=== PATIENT | male | born 1975 | race African-American/Black ===

== ENCOUNTER 2016-09-12 05:41 | Emergency (ER) | payer OTHER ==
[2016-09-12] MEDS ORDERED: METOCLOPRAMIDE INJ 10MG/2ML VIAL (J2765) As Ordered ONE (06:44)
[2016-09-12 07:27] LABS: ALBUMIN 4.1 GM/DL (3.2-5.2); ALBUMIN/GLOBULIN RATIO 1.17 (1.00-1.93); ALKALINE PHOSPHATASE 134 U/L (45-117); ALT/SGPT 35 U/L (12-78); AMYLASE 39 U/L (25-115); ANION GAP 6 MEQ/L (8-16); AST/SGOT 20 U/L (15-37); BILIRUBIN,DIRECT 0.3 MG/DL (0.0-0.2); BILIRUBIN,TOTAL 1.8 MG/DL (0.2-1.0); BLOOD UREA NITROGEN 12 MG/DL (7-18); CALCIUM LEVEL 8.9 MG/DL (8.5-10.1); CARBON DIOXIDE LEVEL 30 MEQ/L (21-32); CHLORIDE LEVEL 106 MEQ/L (98-107); CREATININE FOR GFR 1.07 MG/DL (0.70-1.30); GLOMERULAR FILTRATION RATE > 60.0 (>60); GLUCOSE, FASTING 93 MG/DL (70-105); SODIUM LEVEL 142 MEQ/L (136-145); TOTAL PROTEIN 7.6 GM/DL (6.4-8.2)
[2016-09-12 07:38] LABS: BASO % 0.1 % (0.0-1.0); EOS # 0.1 K/mm3 (0.0-0.50); EOS % 0.6 % (0.0-3.0); LARGE UNSTAINED CELL # 0.1 K/mm3 (0.0-0.4); LARGE UNSTAINED CELL % 0.6 % (0.0-4.0); LYMPH # 0.4 K/mm3 (1.5-4.5); LYMPH % 3.7 % (24.0-44.0); MEAN CORPUSCULAR HEMOGLOBIN 31.3 pg (27.0-33.0); MEAN CORPUSCULAR HGB CONC 33.7 g/dl (32.0-36.5); MEAN CORPUSCULAR VOLUME 92.9 fl (80.0-96.0); MONO # 0.5 K/mm3 (0.0-0.8); MONO % 4.4 % (0.0-5.0); NEUTROPHILS # 10.3 K/mm3 (1.8-7.7); NEUTROPHILS % 90.5 % (36.0-66.0); PLATELET COUNT, AUTOMATED 202 k/mm3 (150-450); RED CELL DISTRIBUTION WIDTH 12.2 % (11.5-14.5); WHITE BLOOD COUNT 11.4 K/mm3 (4.0-10.0)
--- NOTE | 2016-09-12 09:12 | EDDOCDS ---
Physician Documentation [facility] Name: Tomás Ludwig Age: 41 yrs Sex: Male : 1975 Arrival Date: 09/12/2016 Time: 05:41 Bed 12 Private MD: Disposition: 09/12/16 08:50 Discharged to Home/Self Care. Impression: Infectious gastroenteritis and colitis, unspecified. - Condition is Stable. - Discharge Instructions: Clear Liquid Diet, Viral Gastroenteritis, Enof-ya-Dyvo, Clear Liquid Diet, Aqcv-[id number]. - Prescriptions for ZOFRAN ODT 4 mg - dissolve 1 tablet by ORAL route 4 times per day As needed do not chew, do not swallow whole; 10 tablet. - Medication Reconciliation, Local Pharmacy Hours form. - Follow up: Carmella Childers [facility]; When: 1 - 2 days. - Problem is new. - Symptoms are resolved. - Notes: Mild elevation bilirubin requires outpatient follow-up Historical: - Allergies: No known drug Allergies; - Home Meds: 1. none - PMHx: Asthma; - PSHx: Vasectomy; - Social history: Smoking status: Patient uses tobacco products, light tobacco smoker. No barriers to communication noted, The patient speaks fluent Spanish, Speaks appropriately for age. - Family history: Not pertinent. - : The pt / caregiver states he / she is not on anticoagulants. Home medication list is obtained from the patient. - Exposure Risk Screening:: None identified. Vital Signs: 09/12 05:48 BP 123 / 88; Pulse 88; Resp 18; Temp 97.0(O); Pulse Ox 97% on R/A; Weight 63.5 kg / nn1 139.99 lbs; Height 5 ft. 4 in. (162.56 cm); Pain 2/10; 09:09 BP 122 / 78; Pulse 78; Resp 16; Temp 98.1(O); Pulse Ox 98% on R/A; Pain 0/10; ml6 05:48 Body Mass Index 24.03 (63.50 kg, 162.56 cm) nn1 MDM: 06:00 IV Saline Lock ordered. cs11 06:00 NS 0.9% 1000 ml IV at bolus once ordered. cs11 06:00 Metoclopramide 10 mg IV at 40 mg/hr once over 15 mins ordered. cs11 06:01 CBC with Diff Ordered. EDMS 06:01 MED Profile Ordered. EDMS 06:01 Liver Profile Ordered. EDMS 06:01 Amylase Ordered. EDMS 06:01 Lipase Ordered. EDMS 06:14 Financial registration complete. pm4 06:19 [facility] Payment Agreement was scanned into [employer] and attached to record. pm4 07:40 CBC with Diff Reviewed. sd1 07:40 MED Profile Reviewed. sd1 07:40 Liver Profile Reviewed. sd1 07:40 Amylase Reviewed. sd1 07:40 Lipase Reviewed. sd1 07:41 Fluid Challenge ordered. sd1 Administered Medications: 06:52 Drug: NS 0.9% 1000 ml [sodium chloride 0.9 % intravenous solution] Route: IV; Rate: nn1 bolus; Site: right hand; 06:52 Drug: Metoclopramide 10 mg [metoclopramide 5 mg/mL injection solution] Route: IV; Rate: nn1 40 mg/hr; Infused Over: 15 mins; Site: right hand; Signatures: Dispatcher [employer] EDBerenice Schroeder MD MD sd1 Abisai Lovell, RN RN ml6 Oswaldo Nuñez DO DO cs11 Roselyn Garza RN RN nn1 Edu Hayes, Reg Reg pm4 The chart was reviewed and I authenticate all verbal orders and agree with the evaluation and treatment provided.Attachments: 06:19 [facility] Payment Agreement pm4 MTDD
--- NOTE | 2016-09-12 09:12 | EDDOCDS ---
Nurse's Notes [facility] Name: Tomás Ludwig Age: 41 yrs Sex: Male : 1975 Arrival Date: 09/12/2016 Time: 05:41 Bed 12 Private MD: Diagnosis: Infectious gastroenteritis and colitis, unspecified Presentation: 09/12 05:45 Presenting complaint: Patient states: he woke up at 0300 and began having vomiting and nn1 diarrhea. Patient reports no symptoms yesterday. Patient reports 2 episodes of vomiting and constant diarrhea. Adult Sepsis Screening: The patient does not have new or worsening altered mentation. Patient's respiratory rate is less than 22. Systolic blood pressure is greater than 100. Patient has a qSOFA score of 0- Negative Sepsis Screen. Suicide/Homicide risk assessment- the patient denies having any suicidal and/or homicidal ideations and does not present with any other emotional, behavioral or mental health complaints. Status: The patient is an active duty passenger service manager. Transition of care: patient was not received from another setting of care. 05:45 Acuity: ELIEL Level 3 nn1 05:45 Method Of Arrival: Walkin/Carried/Asstd nn1 Triage Assessment: 05:49 General: Appears in no apparent distress, comfortable, Behavior is appropriate for age, nn1 cooperative. Pain: Location: abdomen Pain currently is 2 out of 10 on a pain scale. Pain began 3 hours ago. The patient is triaged at the bedside. See Assessment in Nurses Notes section of ED record. Neurological: No deficits noted. GI: Reports diarrhea, nausea, vomiting. Derm: Skin is normal. 05:55 Pt Declines HIV testing. nn1 Historical: - Allergies: No known drug Allergies; - Home Meds: 1. none - PMHx: Asthma; - PSHx: Vasectomy; - Social history: Smoking status: Patient uses tobacco products, light tobacco smoker. No barriers to communication noted, The patient speaks fluent Swedish, Speaks appropriately for age. - Family history: Not pertinent. - : The pt / caregiver states he / she is not on anticoagulants. Home medication list is obtained from the patient. - Exposure Risk Screening:: None identified. Screenin:09 Screening information is obtained from the patient. Fall risk: No risks identified. ml6 Assistance ADL's: requires no assistance with activities of daily living. Abuse/DV Screen: The patient / caregiver reports he/she is: not in a situation that causes fear, pain or injury. Nutritional screening: No deficits noted. Advance Directives: Currently, there is no health care proxy. home support is adequate. Assessment: 05:54 General: Appears in no apparent distress, comfortable, Behavior is appropriate for age, nn1 cooperative. Pain: Location: abdomen Pain currently is 2 out of 10 on a pain scale. Neurological: Level of Consciousness is awake, alert, obeys commands, Oriented to person, place, time. Respiratory: Airway is patent Respiratory effort is even, unlabored, Respiratory pattern is regular, symmetrical, Breath sounds are clear bilaterally. Denies cough, shortness of breath. GI: Abdomen is non- distended Bowel sounds present X 4 quads. Abd is soft X 4 quads Abd is tender to palpation in umbilical area Reports diarrhea, nausea, vomiting, last episode of vomiting was 30 minutes ago. Derm: Skin is pink, warm & dry. 06:53 General: Appears in no apparent distress, comfortable, Behavior is appropriate for age, nn1 cooperative, No vomiting at this time. . Respiratory: Airway is patent Respiratory effort is even, unlabored, Respiratory pattern is regular. 07:08 General: Appears in no apparent distress, comfortable, Behavior is appropriate for age, ml6 cooperative. Pain: Denies pain. Neurological: No deficits noted. Level of Consciousness is awake, alert, Oriented to person, place, time. Cardiovascular: No deficits noted. Capillary refill < 3 seconds is brisk in bilateral fingers toes. Respiratory: No deficits noted. Airway is patent Respiratory effort is even, unlabored, Respiratory pattern is regular, symmetrical. GI: Abdomen is flat, non- distended Bowel sounds present X 4 quads. Abd is soft and non tender X 4 quads. Denies nausea, vomiting, pain. 07:52 General: Patient tolerated ice water with no complaints.. js13 08:00 Reassessment: Patient appears in no apparent distress at this time. Patient denies pain ml6 at this time. Patient states feeling better. Patient states symptoms have improved. 09:08 General: Appears in no apparent distress, comfortable, Behavior is appropriate for age, ml6 cooperative. Pain: Denies pain. Neurological: No deficits noted. Level of Consciousness is awake, alert, Oriented to person, place, time. Cardiovascular: No deficits noted. Capillary refill < 3 seconds is brisk in bilateral fingers toes. Respiratory: No deficits noted. Airway is patent Respiratory effort is even, unlabored, Respiratory pattern is regular, symmetrical, Breath sounds are clear bilaterally. GI: No deficits noted. Abdomen is flat, non- distended Bowel sounds present X 4 quads. Abd is soft and non tender X 4 quads. Reports diarrhea, nausea, vomiting. Vital Signs: 05:48 BP 123 / 88; Pulse 88; Resp 18; Temp 97.0(O); Pulse Ox 97% on R/A; Weight 63.5 kg; nn1 Height 5 ft. 4 in. (162.56 cm); Pain 2/10; 09:09 BP 122 / 78; Pulse 78; Resp 16; Temp 98.1(O); Pulse Ox 98% on R/A; Pain 0/10; ml6 05:48 Body Mass Index 24.03 (63.50 kg, 162.56 cm) nn1 Vitals: 05:48 Log In Time: September 12, 2016 at 05:44. nn1 ED Course: 05:43 Patient visited by Rama Holloway Reg. hs2 05:43 Patient moved to Waiting hs2 05:45 Patient moved to Triage 1 nn1 05:47 Triage Initiated nn1 05:51 Emily Jackson RN is Primary Nurse. mlc 05:51 Patient moved to 12 mlc 05:59 Oswaldo Nuñez DO is Attending Physician. cs11 05:59 Patient visited by Oswaldo Nuñez DO. cs11 06:17 Missed attempts: 20 gauge X 2 in right antecubital area, in left antecubital area. nn1 06:18 Patient name changed from Tomás\S\C\S\Oziel\S\ to Tomás\S\Emiliano\S\Oziel. EDMS 06:19 [facility] Payment Agreement was scanned into [place] [employer] and attached to record. pm4 06:54 Patient visited by Roselyn Garza RN. nn1 06:57 Inserted saline lock: 22 gauge in right hand. nn1 06:58 Attending Physician role handed off by Oswaldo Nuñez DO sd1 06:58 Berenice Bullock MD is Attending Physician. sd1 07:18 Primary Nurse role handed off by Emily Jackson,FERDINAND kr3 07:28 Patient visited by Abisai Lovell RN. ml6 08:28 Patient visited by Shamika Gerber. nb2 08:50 Carmella Childers [facility] is Referral Physician. sd1 09:09 Discontinued IV bleeding controlled, pressure dressing applied, No redness/swelling at ml6 site. No procedures done that require assistance. 09:11 The patient / caregiver is instructed regarding the plan of care and ED course. ml6 Administered Medications: 06:52 Drug: NS 0.9% 1000 ml [sodium chloride 0.9 % intravenous solution] Route: IV; Rate: nn1 bolus; Site: right hand; 06:52 Drug: Metoclopramide 10 mg [metoclopramide 5 mg/mL injection solution] Route: IV; Rate: nn1 40 mg/hr; Infused Over: 15 mins; Site: right hand; Order Results: Lab Order: CBC with Diff; SPEC'M 09/12/16 06:55 Test: WHITE BLOOD COUNT; Value: 11.4; Range: 4.0-10.0; Abnormal: Above high normal; Units: K/mm3; Status: F Test: RED BLOOD COUNT; Value: 5.30; Range: 4.30-6.10; Units: M/mm3; Status: F Test: HEMOGLOBIN; Value: 16.6; Range: 14.0-18.0; Units: g/dl; Status: F Test: HEMATOCRIT; Value: 49.3; Range: 42.0-52.0; Units: %; Status: F Test: MEAN CORPUSCULAR VOLUME; Value: 92.9; Range: 80.0-96.0; Units: fl; Status: F Test: MEAN CORPUSCULAR HEMOGLOBIN; Value: 31.3; Range: 27.0-33.0; Units: pg; Status: F Test: MEAN CORPUSCULAR HGB CONC; Value: 33.7; Range: 32.0-36.5; Units: g/dl; Status: F Test: RED CELL DISTRIBUTION WIDTH; Value: 12.2; Range: 11.5-14.5; Units: %; Status: F Test: PLATELET COUNT, AUTOMATED; Value: 202; Range: 150-450; Units: k/mm3; Status: F Test: NEUTROPHILS %; Value: 90.5; Range: 36.0-66.0; Abnormal: Above high normal; Units: %; Status: F Test: LYMPH %; Value: 3.7; Range: 24.0-44.0; Abnormal: Below low normal; Units: %; Status: F Test: MONO %; Value: 4.4; Range: 0.0-5.0; Units: %; Status: F Test: EOS %; Value: 0.6; Range: 0.0-3.0; Units: %; Status: F Test: BASO %; Value: 0.1; Range: 0.0-1.0; Units: %; Status: F Test: LARGE UNSTAINED CELL %; Value: 0.6; Range: 0.0-4.0; Units: %; Status: F Test: NEUTROPHILS #; Value: 10.3; Range: 1.8-7.7; Abnormal: Above high normal; Units: K/mm3; Status: F Test: LYMPH #; Value: 0.4; Range: 1.5-4.5; Abnormal: Below low normal; Units: K/mm3; Status: F Test: MONO #; Value: 0.5; Range: 0.0-0.8; Units: K/mm3; Status: F Test: EOS #; Value: 0.1; Range: 0.0-0.50; Units: K/mm3; Status: F Test: BASO #; Value: 0.0; Range: 0.0-0.2; Units: K/mm3; Status: F Test: LARGE UNSTAINED CELL #; Value: 0.1; Range: 0.0-0.4; Units: K/mm3; Status: F Lab Order: MED Profile; SPEC'M 09/12/16 06:55 Test: GLUCOSE, FASTING; Value: 93; Range: 70-105; Units: MG/DL; Status: F Test: BLOOD UREA NITROGEN; Value: 12; Range: 7-18; Units: MG/DL; Status: F Test: CREATININE FOR GFR; Value: 1.07; Range: 0.70-1.30; Units: MG/DL; Status: F Test: GLOMERULAR FILTRATION RATE; Value: > 60.0; Range: >60; Status: F Test: SODIUM LEVEL; Value: 142; Range: 136-145; Units: MEQ/L; Status: F Test: POTASSIUM SERUM; Value: 4.0; Range: 3.5-5.1; Units: MEQ/L; Status: F Test: CHLORIDE LEVEL; Value: 106; Range: 98-107; Units: MEQ/L; Status: F Test: CARBON DIOXIDE LEVEL; Value: 30; Range: 21-32; Units: MEQ/L; Status: F Test: ANION GAP; Value: 6; Range: 8-16; Abnormal: Below low normal; Units: MEQ/L; Status: F Test: CALCIUM LEVEL; Value: 8.9; Range: 8.5-10.1; Units: MG/DL; Status: F Test Note: ; Units are mL/min/1.73 m2 Chronic Kidney Disease Staging per NKF: Stage I & II GFR >=60 Normal to Mildly Decreased Stage III GFR 30-59 Moderately Decreased Stage IV GFR 15-29 Severely Decreased Stage V GFR <15 Very Little GFR Left ESRD GFR <15 on [employer]NC [employer]UFACTURING ENGINEER Lab Order: Liver Profile; SPEC'M 09/12/16 06:55 Test: AST/SGOT; Value: 20; Range: 15-37; Units: U/L; Status: F Test: ALT/SGPT; Value: 35; Range: 12-78; Units: U/L; Status: F Test: ALKALINE PHOSPHATASE; Value: 134; Range: 45-117; Abnormal: Above high normal; Units: U/L; Status: F Test: BILIRUBIN,TOTAL; Value: 1.8; Range: 0.2-1.0; Abnormal: Above high normal; Units: MG/DL; Status: F Test: BILIRUBIN,DIRECT; Value: 0.3; Range: 0.0-0.2; Abnormal: Above high normal; Units: MG/DL; Status: F Test: TOTAL PROTEIN; Value: 7.6; Range: 6.4-8.2; Units: GM/DL; Status: F Test: ALBUMIN; Value: 4.1; Range: 3.2-5.2; Units: GM/DL; Status: F Test: ALBUMIN/GLOBULIN RATIO; Value: 1.17; Range: 1.00-1.93; Status: F Lab Order: Amylase; SPEC'M 09/12/16 06:55 Test: AMYLASE; Value: 39; Range: 25-115; Units: U/L; Status: F Lab Order: Lipase; SPEC'M 09/12/16 06:55 Test: LIPASE; Value: 87; Range: 73-393; Units: U/L; Status: F Outcome: 08:50 Discharge ordered by Provider. sd1 09:10 Discharge Assessment: patient administered narcotics - no. The following High Risk ml6 Discharge criteria are identified: None. Discharged to home ambulatory. Condition: stable. Discharge instructions given to patient, Instructed on discharge instructions, follow up and referral plans. medication usage, Demonstrated understanding of instructions, medications, Pt was receptive of discharge instructions/ teaching. Prescriptions given X 1. No special radiology studies were completed. Property :Personal belongings accompany Pt. 09:11 Patient left the ED. ml6 Signatures: Dispatcher [employer] EDCO Berenice Bullock MD MD sd1 Diana Ashley,RN RN kr3 Abisai Lovell RN RN ml6 Rosy Massey,RN RN js13 Oswaldo Nuñez, DO DO cs11 Emily JacksonRN RN Roselyn Welch RN RN nn1 Rama Holloway, Reg Reg hs2 Shamika Gerber nb2 Edu Hayes, Reg Reg pm4 Corrections: (The following items were deleted from the chart) 05:55 05:49 HIV screening NA for this visit nn1 nn1 MTDD
--- NOTE | 2016-09-14 10:12 | EDDOCDS ---
Nurse's Notes [facility] Name: Tomás Ludwig Age: 41 yrs Sex: Male : 1975 Arrival Date: 09/12/2016 Time: 05:41 Bed 12 Private MD: Diagnosis: Infectious gastroenteritis and colitis, unspecified Presentation: 09/12 05:45 Presenting complaint: Patient states: he woke up at 0300 and began having vomiting and nn1 diarrhea. Patient reports no symptoms yesterday. Patient reports 2 episodes of vomiting and constant diarrhea. Adult Sepsis Screening: The patient does not have new or worsening altered mentation. Patient's respiratory rate is less than 22. Systolic blood pressure is greater than 100. Patient has a qSOFA score of 0- Negative Sepsis Screen. Suicide/Homicide risk assessment- the patient denies having any suicidal and/or homicidal ideations and does not present with any other emotional, behavioral or mental health complaints. Status: The patient is an active duty service attendant. Transition of care: patient was not received from another setting of care. 05:45 Acuity: ELIEL Level 3 nn1 05:45 Method Of Arrival: Walkin/Carried/Asstd nn1 Triage Assessment: 05:49 General: Appears in no apparent distress, comfortable, Behavior is appropriate for age, nn1 cooperative. Pain: Location: abdomen Pain currently is 2 out of 10 on a pain scale. Pain began 3 hours ago. The patient is triaged at the bedside. See Assessment in Nurses Notes section of ED record. Neurological: No deficits noted. GI: Reports diarrhea, nausea, vomiting. Derm: Skin is normal. 05:55 Pt Declines HIV testing. nn1 Historical: - Allergies: No known drug Allergies; - Home Meds: 1. none - PMHx: Asthma; - PSHx: Vasectomy; - Social history: Smoking status: Patient uses tobacco products, light tobacco smoker. No barriers to communication noted, The patient speaks fluent Malay, Speaks appropriately for age. - Family history: Not pertinent. - : The pt / caregiver states he / she is not on anticoagulants. Home medication list is obtained from the patient. - Exposure Risk Screening:: None identified. Screenin:09 Screening information is obtained from the patient. Fall risk: No risks identified. ml6 Assistance ADL's: requires no assistance with activities of daily living. Abuse/DV Screen: The patient / caregiver reports he/she is: not in a situation that causes fear, pain or injury. Nutritional screening: No deficits noted. Advance Directives: Currently, there is no health care proxy. home support is adequate. Assessment: 05:54 General: Appears in no apparent distress, comfortable, Behavior is appropriate for age, nn1 cooperative. Pain: Location: abdomen Pain currently is 2 out of 10 on a pain scale. Neurological: Level of Consciousness is awake, alert, obeys commands, Oriented to person, place, time. Respiratory: Airway is patent Respiratory effort is even, unlabored, Respiratory pattern is regular, symmetrical, Breath sounds are clear bilaterally. Denies cough, shortness of breath. GI: Abdomen is non- distended Bowel sounds present X 4 quads. Abd is soft X 4 quads Abd is tender to palpation in umbilical area Reports diarrhea, nausea, vomiting, last episode of vomiting was 30 minutes ago. Derm: Skin is pink, warm & dry. 06:53 General: Appears in no apparent distress, comfortable, Behavior is appropriate for age, nn1 cooperative, No vomiting at this time. . Respiratory: Airway is patent Respiratory effort is even, unlabored, Respiratory pattern is regular. 07:08 General: Appears in no apparent distress, comfortable, Behavior is appropriate for age, ml6 cooperative. Pain: Denies pain. Neurological: No deficits noted. Level of Consciousness is awake, alert, Oriented to person, place, time. Cardiovascular: No deficits noted. Capillary refill < 3 seconds is brisk in bilateral fingers toes. Respiratory: No deficits noted. Airway is patent Respiratory effort is even, unlabored, Respiratory pattern is regular, symmetrical. GI: Abdomen is flat, non- distended Bowel sounds present X 4 quads. Abd is soft and non tender X 4 quads. Denies nausea, vomiting, pain. 07:52 General: Patient tolerated ice water with no complaints.. [id number] 08:00 Reassessment: Patient appears in no apparent distress at this time. Patient denies pain ml6 at this time. Patient states feeling better. Patient states symptoms have improved. 09:08 General: Appears in no apparent distress, comfortable, Behavior is appropriate for age, ml6 cooperative. Pain: Denies pain. Neurological: No deficits noted. Level of Consciousness is awake, alert, Oriented to person, place, time. Cardiovascular: No deficits noted. Capillary refill < 3 seconds is brisk in bilateral fingers toes. Respiratory: No deficits noted. Airway is patent Respiratory effort is even, unlabored, Respiratory pattern is regular, symmetrical, Breath sounds are clear bilaterally. GI: No deficits noted. Abdomen is flat, non- distended Bowel sounds present X 4 quads. Abd is soft and non tender X 4 quads. Reports diarrhea, nausea, vomiting. Vital Signs: 05:48 BP 123 / 88; Pulse 88; Resp 18; Temp 97.0(O); Pulse Ox 97% on R/A; Weight 63.5 kg; nn1 Height 5 ft. 4 in. (162.56 cm); Pain 2/10; 09:09 BP 122 / 78; Pulse 78; Resp 16; Temp 98.1(O); Pulse Ox 98% on R/A; Pain 0/10; ml6 05:48 Body Mass Index 24.03 (63.50 kg, 162.56 cm) nn1 Vitals: 05:48 Log In Time: September 12, 2016 at 05:44. nn1 ED Course: 05:43 Patient visited by Rama Holloway Reg. hs2 05:43 Patient moved to Waiting hs2 05:45 Patient moved to Triage 1 nn1 05:47 Triage Initiated nn1 05:51 Emily Jackson RN is Primary Nurse. mlc 05:51 Patient moved to 12 mlc 05:59 Oswaldo Nuñez DO is Attending Physician. cs11 05:59 Patient visited by Oswaldo Nuñez DO. cs11 06:17 Missed attempts: 20 gauge X 2 in right antecubital area, in left antecubital area. nn1 06:18 Patient name changed from Tomás\S\C\S\Oziel\S\ to Tomás\S\Emiliano\S\Oziel. EDMS 06:19 [facility] [place] was scanned into [email or web address] and attached to record. pm4 06:54 Patient visited by Roselyn Garza RN. nn1 06:57 Inserted saline lock: 22 gauge in right hand. nn1 06:58 Attending Physician role handed off by Oswaldo Nuñez DO sd1 06:58 Berenice Bullock MD is Attending Physician. sd1 07:18 Primary Nurse role handed off by Emily Jackson,FERDINAND kr3 07:28 Patient visited by Abisai Lovell RN. ml6 08:28 Patient visited by Shamika Gerber. nb2 08:50 Carmella Childers [facility] is Referral Physician. sd1 09:09 Discontinued IV bleeding controlled, pressure dressing applied, No redness/swelling at ml6 site. No procedures done that require assistance. 09:11 The patient / caregiver is instructed regarding the plan of care and ED course. [facility] 13:23 T-Sheet-- Draft Copy was scanned into [email or web address] and attached to record. gb Administered Medications: 06:52 Drug: NS 0.9% 1000 ml [sodium chloride 0.9 % intravenous solution] Route: IV; Rate: nn1 bolus; Site: right hand; 06:52 Drug: Metoclopramide 10 mg [metoclopramide 5 mg/mL injection solution] Route: IV; Rate: nn1 40 mg/hr; Infused Over: 15 mins; Site: right hand; Order Results: Lab Order: CBC with Diff; SPEC'M 09/12/16 06:55 Test: WHITE BLOOD COUNT; Value: 11.4; Range: 4.0-10.0; Abnormal: Above high normal; Units: K/mm3; Status: F Test: RED BLOOD COUNT; Value: 5.30; Range: 4.30-6.10; Units: M/mm3; Status: F Test: HEMOGLOBIN; Value: 16.6; Range: 14.0-18.0; Units: g/dl; Status: F Test: HEMATOCRIT; Value: 49.3; Range: 42.0-52.0; Units: %; Status: F Test: MEAN CORPUSCULAR VOLUME; Value: 92.9; Range: 80.0-96.0; Units: fl; Status: F Test: MEAN CORPUSCULAR HEMOGLOBIN; Value: 31.3; Range: 27.0-33.0; Units: pg; Status: F Test: MEAN CORPUSCULAR HGB CONC; Value: 33.7; Range: 32.0-36.5; Units: g/dl; Status: F Test: RED CELL DISTRIBUTION WIDTH; Value: 12.2; Range: 11.5-14.5; Units: %; Status: F Test: PLATELET COUNT, AUTOMATED; Value: 202; Range: 150-450; Units: k/mm3; Status: F Test: NEUTROPHILS %; Value: 90.5; Range: 36.0-66.0; Abnormal: Above high normal; Units: %; Status: F Test: LYMPH %; Value: 3.7; Range: 24.0-44.0; Abnormal: Below low normal; Units: %; Status: F Test: MONO %; Value: 4.4; Range: 0.0-5.0; Units: %; Status: F Test: EOS %; Value: 0.6; Range: 0.0-3.0; Units: %; Status: F Test: BASO %; Value: 0.1; Range: 0.0-1.0; Units: %; Status: F Test: LARGE UNSTAINED CELL %; Value: 0.6; Range: 0.0-4.0; Units: %; Status: F Test: NEUTROPHILS #; Value: 10.3; Range: 1.8-7.7; Abnormal: Above high normal; Units: K/mm3; Status: F Test: LYMPH #; Value: 0.4; Range: 1.5-4.5; Abnormal: Below low normal; Units: K/mm3; Status: F Test: MONO #; Value: 0.5; Range: 0.0-0.8; Units: K/mm3; Status: F Test: EOS #; Value: 0.1; Range: 0.0-0.50; Units: K/mm3; Status: F Test: BASO #; Value: 0.0; Range: 0.0-0.2; Units: K/mm3; Status: F Test: LARGE UNSTAINED CELL #; Value: 0.1; Range: 0.0-0.4; Units: K/mm3; Status: F Lab Order: MED Profile; SPEC'M 09/12/16 06:55 Test: GLUCOSE, FASTING; Value: 93; Range: 70-105; Units: MG/DL; Status: F Test: BLOOD UREA NITROGEN; Value: 12; Range: 7-18; Units: MG/DL; Status: F Test: CREATININE FOR GFR; Value: 1.07; Range: 0.70-1.30; Units: MG/DL; Status: F Test: GLOMERULAR FILTRATION RATE; Value: > 60.0; Range: >60; Status: F Test: SODIUM LEVEL; Value: 142; Range: 136-145; Units: MEQ/L; Status: F Test: POTASSIUM SERUM; Value: 4.0; Range: 3.5-5.1; Units: MEQ/L; Status: F Test: CHLORIDE LEVEL; Value: 106; Range: 98-107; Units: MEQ/L; Status: F Test: CARBON DIOXIDE LEVEL; Value: 30; Range: 21-32; Units: MEQ/L; Status: F Test: ANION GAP; Value: 6; Range: 8-16; Abnormal: Below low normal; Units: MEQ/L; Status: F Test: CALCIUM LEVEL; Value: 8.9; Range: 8.5-10.1; Units: MG/DL; Status: F Test Note: ; Units are mL/min/1.73 m2 Chronic Kidney Disease Staging per NKF: Stage I & II GFR >=60 Normal to Mildly Decreased Stage III GFR 30-59 Moderately Decreased Stage IV GFR 15-29 Severely Decreased Stage V GFR <15 Very Little GFR Left ESRD GFR <15 on [employer] Lab Order: Liver Profile; SPEC'M 09/12/16 06:55 Test: AST/SGOT; Value: 20; Range: 15-37; Units: U/L; Status: F Test: ALT/SGPT; Value: 35; Range: 12-78; Units: U/L; Status: F Test: ALKALINE PHOSPHATASE; Value: 134; Range: 45-117; Abnormal: Above high normal; Units: U/L; Status: F Test: BILIRUBIN,TOTAL; Value: 1.8; Range: 0.2-1.0; Abnormal: Above high normal; Units: MG/DL; Status: F Test: BILIRUBIN,DIRECT; Value: 0.3; Range: 0.0-0.2; Abnormal: Above high normal; Units: MG/DL; Status: F Test: TOTAL PROTEIN; Value: 7.6; Range: 6.4-8.2; Units: GM/DL; Status: F Test: ALBUMIN; Value: 4.1; Range: 3.2-5.2; Units: GM/DL; Status: F Test: ALBUMIN/GLOBULIN RATIO; Value: 1.17; Range: 1.00-1.93; Status: F Lab Order: Amylase; SPEC'M 09/12/16 06:55 Test: AMYLASE; Value: 39; Range: 25-115; Units: U/L; Status: F Lab Order: Lipase; SPEC'M 09/12/16 06:55 Test: LIPASE; Value: 87; Range: 73-393; Units: U/L; Status: F Outcome: 08:50 Discharge ordered by Provider. sd1 09:10 Discharge Assessment: patient administered narcotics - no. The following High Risk ml6 Discharge criteria are identified: None. Discharged to home ambulatory. Condition: stable. Discharge instructions given to patient, Instructed on discharge instructions, follow up and referral plans. medication usage, Demonstrated understanding of instructions, medications, Pt was receptive of discharge instructions/ teaching. Prescriptions given X 1. No special radiology studies were completed. Property :Personal belongings accompany Pt. 09:11 Patient left the ED. ml6 Signatures: Dispatcher [employer] EDCT Berenice Bullock MD MD sd1 Madeline Meyer, Reg Reg gb Diana Ashley,RN RN [id number] Abisai Lovell RN RN ml6 Rosy Massey,RN RN js13 Oswaldo Nuñez, DO DO cs11 Emily Jackson,RN RN mlc Roselyn GarzaRN RN nn1 Rama Holloway, Reg Reg hs2 Shamika Gerber nb2 Edu Hayes, Reg Reg pm4 Corrections: (The following items were deleted from the chart) 05:55 05:49 HIV screening NA for this visit nn1 nn1 Chart Complete MTDD
--- NOTE | 2016-09-14 10:12 | EDDOCDS ---
Physician Documentation [facility] Name: Tomás Ludwig Age: 41 yrs Sex: Male : 1975 Arrival Date: 09/12/2016 Time: 05:41 Bed 12 Private MD: Disposition: 09/12/16 08:50 Discharged to Home/Self Care. Impression: Infectious gastroenteritis and colitis, unspecified. - Condition is Stable. - Discharge Instructions: Clear Liquid Diet, Viral Gastroenteritis, [id number], Clear Liquid Diet, [id number]. - Prescriptions for ZOFRAN ODT 4 mg - dissolve 1 tablet by ORAL route 4 times per day As needed do not chew, do not swallow whole; 10 tablet. - Medication Reconciliation, Local Pharmacy Hours form. - Follow up: Carmella Childers [facility]; When: 1 - 2 days. - Problem is new. - Symptoms are resolved. - Notes: Mild elevation bilirubin requires outpatient follow-up Historical: - Allergies: No known drug Allergies; - Home Meds: 1. none - PMHx: Asthma; - PSHx: Vasectomy; - Social history: Smoking status: Patient uses tobacco products, light tobacco smoker. No barriers to communication noted, The patient speaks fluent Malawian, Speaks appropriately for age. - Family history: Not pertinent. - : The pt / caregiver states he / she is not on anticoagulants. Home medication list is obtained from the patient. - Exposure Risk Screening:: None identified. Vital Signs: 09/12 05:48 BP 123 / 88; Pulse 88; Resp 18; Temp 97.0(O); Pulse Ox 97% on R/A; Weight 63.5 kg / nn1 139.99 lbs; Height 5 ft. 4 in. (162.56 cm); Pain 2/10; 09:09 BP 122 / 78; Pulse 78; Resp 16; Temp 98.1(O); Pulse Ox 98% on R/A; Pain 0/10; ml6 05:48 Body Mass Index 24.03 (63.50 kg, 162.56 cm) nn1 MDM: 06:00 IV Saline Lock ordered. cs11 06:00 NS 0.9% 1000 ml IV at bolus once ordered. cs11 06:00 Metoclopramide 10 mg IV at 40 mg/hr once over 15 mins ordered. cs11 06:01 CBC with Diff Ordered. EDMS 06:01 MED Profile Ordered. EDMS 06:01 Liver Profile Ordered. EDMS 06:01 Amylase Ordered. EDMS 06:01 Lipase Ordered. EDMS 06:14 Financial registration complete. pm4 06:19 [facility] Payment Agreement was scanned into [employer] and attached to record. pm4 07:40 CBC with Diff Reviewed. sd1 07:40 MED Profile Reviewed. sd1 07:40 Liver Profile Reviewed. sd1 07:40 Amylase Reviewed. sd1 07:40 Lipase Reviewed. sd1 07:41 Fluid Challenge ordered. sd1 13:23 T-Sheet-- Draft Copy was scanned into [employer] and attached to record. gb Administered Medications: 06:52 Drug: NS 0.9% 1000 ml [sodium chloride 0.9 % intravenous solution] Route: IV; Rate: nn1 bolus; Site: right hand; 06:52 Drug: Metoclopramide 10 mg [metoclopramide 5 mg/mL injection solution] Route: IV; Rate: nn1 40 mg/hr; Infused Over: 15 mins; Site: right hand; Signatures: Dispatcher [employer] Berenice Almeida MD MD sd1 Madeline Meyer, Reg Reg gb Abisai Lovell, RN RN ml6 Oswaldo Nuñez, DO cs11 Roselyn GarzaRN RN nn1 Edu Hayes, Reg Reg pm4 The chart was reviewed and I authenticate all verbal orders and agree with the evaluation and treatment provided.Attachments: 06:19 [facility] Payment Agreement pm4 13:23 T-Sheet-- Draft Copy gb Chart Complete MTDD
--- NOTE | 2016-09-14 10:12 | EDDOCDS ---
Physician Documentation [facility] Name: Tomás Ludwig Age: 41 yrs Sex: Male : 1975 Arrival Date: 09/12/2016 Time: 05:41 Bed 12 Private MD: Disposition: 09/12/16 08:50 Discharged to Home/Self Care. Impression: Infectious gastroenteritis and colitis, unspecified. - Condition is Stable. - Discharge Instructions: Clear Liquid Diet, Viral Gastroenteritis, [id number], Clear Liquid Diet, [id number]. - Prescriptions for ZOFRAN ODT 4 mg - dissolve 1 tablet by ORAL route 4 times per day As needed do not chew, do not swallow whole; 10 tablet. - Medication Reconciliation, Local Pharmacy Hours form. - Follow up: Carmella Childers [facility]; When: 1 - 2 days. - Problem is new. - Symptoms are resolved. - Notes: Mild elevation bilirubin requires outpatient follow-up Historical: - Allergies: No known drug Allergies; - Home Meds: 1. none - PMHx: Asthma; - PSHx: Vasectomy; - Social history: Smoking status: Patient uses tobacco products, light tobacco smoker. No barriers to communication noted, The patient speaks fluent [place], Speaks appropriately for age. - Family history: Not pertinent. - : The pt / caregiver states he / she is not on anticoagulants. Home medication list is obtained from the patient. - Exposure Risk Screening:: None identified. Vital Signs: 09/12 05:48 BP 123 / 88; Pulse 88; Resp 18; Temp 97.0(O); Pulse Ox 97% on R/A; Weight 63.5 kg / nn1 139.99 lbs; Height 5 ft. 4 in. (162.56 cm); Pain 2/10; 09:09 BP 122 / 78; Pulse 78; Resp 16; Temp 98.1(O); Pulse Ox 98% on R/A; Pain 0/10; ml6 05:48 Body Mass Index 24.03 (63.50 kg, 162.56 cm) nn1 MDM: 06:00 IV Saline Lock ordered. cs11 06:00 NS 0.9% 1000 ml IV at bolus once ordered. cs11 06:00 Metoclopramide 10 mg IV at 40 mg/hr once over 15 mins ordered. cs11 06:01 CBC with Diff Ordered. EDMS 06:01 MED Profile Ordered. EDMS 06:01 Liver Profile Ordered. EDMS 06:01 Amylase Ordered. EDMS 06:01 Lipase Ordered. EDMS 06:14 Financial registration complete. pm4 06:19 [facility] Payment Agreement was scanned into [employer] and attached to record. pm4 07:40 CBC with Diff Reviewed. sd1 07:40 MED Profile Reviewed. sd1 07:40 Liver Profile Reviewed. sd1 07:40 Amylase Reviewed. sd1 07:40 Lipase Reviewed. sd1 07:41 Fluid Challenge ordered. sd1 13:23 T-Sheet-- Draft Copy was scanned into [employer] and attached to record. gb Administered Medications: 06:52 Drug: NS 0.9% 1000 ml [sodium chloride 0.9 % intravenous solution] Route: IV; Rate: nn1 bolus; Site: right hand; 06:52 Drug: Metoclopramide 10 mg [metoclopramide 5 mg/mL injection solution] Route: IV; Rate: nn1 40 mg/hr; Infused Over: 15 mins; Site: right hand; Signatures: Dispatcher [employer] Berenice Almeida MD MD sd1 Madeline Meyer, Reg Reg gb Abisai Lovell, RN RN ml6 Oswaldo Nuñez, DO cs11 Roselyn GarzaRN RN nn1 Edu Hayes, Reg Reg pm4 The chart was reviewed and I authenticate all verbal orders and agree with the evaluation and treatment provided.Attachments: 06:19 [facility] Payment Agreement pm4 13:23 T-Sheet-- Draft Copy gb Chart Complete MTDD
== END 2016-09-12 09:11 | disposition home or self-care (01) ==
LOC: M ED 05:41
DX: K52.9 Noninfective gastroenteritis and colitis, unspecified (principal); J45.909 Unspecified asthma, uncomplicated; Z72.0 Tobacco use
CPT/HCPCS: 36415; 80048; 80076; 82150; 83690; 85025; 96374; 99283; J2765